=== PATIENT | male | born 1990 | race African-American/Black ===

== ENCOUNTER 2021-09-06 15:43 | Emergency (ER) | payer SELFPAY | END 2021-09-06 17:45 | disposition home or self-care (01) | LOC: MW.ED 15:43 | DX: S62.337A Displaced fracture of neck of fifth metacarpal bone, left hand, initial encounter for closed fracture (principal); W22.8XXA Striking against or struck by other objects, initial encounter | CPT/HCPCS: 29125; 73130-26-LT; 73130-LT; 99283-25 ==

== ENCOUNTER 2024-02-11 20:32 | Emergency (ER) | payer SELFPAY ==
[2024-02-11] MEDS: Tetracaine HCl/PF 0.5% 4 ML Bottle EYEBOTH STA (21:07)
[2024-02-11] MEDS: Erythromycin Base 0.5% Ophth Oint 1 GM Tube EYEBOTH STA (21:07)
== END 2024-02-11 21:31 | disposition home or self-care (01) ==
LOC: MW.ED 20:32
DX: H11.423 Conjunctival edema, bilateral (principal); Z90.49 Acquired absence of other specified parts of digestive tract
CPT/HCPCS: 99283; A9270; J3490

== ENCOUNTER 2024-06-26 12:17 | Emergency (ER) | payer BC ==
[2024-06-26] MEDS: Benzocaine 20% Topical Spray UD MUCMEM ONE (14:13)
[2024-06-26] MEDS: Lidocaine 2% Viscous Solution 15 ML UD PO ONE (14:13)
== END 2024-06-26 14:16 | disposition home or self-care (01) ==
LOC: MW.ED 12:17
DX: K08.89 Other specified disorders of teeth and supporting structures (principal); Z90.49 Acquired absence of other specified parts of digestive tract; Z75.8 Other problems related to medical facilities and other health care
CPT/HCPCS: 99283; A9270